=== PATIENT | female | born 1955 | race Caucasian/White ===

== ENCOUNTER 2020-10-27 16:24 | Emergency (ER) | payer OTHER ==
[2020-10-28] MEDS ORDERED: LODINE CAP 300300 MG PO (00:17)
[2020-10-28] MEDS ORDERED: NORFLEX 100 MG100 MG PO (00:17)
== END 2020-10-28 00:50 | disposition home or self-care (01) ==
LOC: ER1 16:24
DX: S16.1XXA Strain of muscle, fascia and tendon at neck level, initial encounter (principal); S39.012A Strain of muscle, fascia and tendon of lower back, initial encounter; S29.012A Strain of muscle and tendon of back wall of thorax, initial encounter; S00.83XA Contusion of other part of head, initial encounter; I11.9 Hypertensive heart disease without heart failure; E78.5 Hyperlipidemia, unspecified; F17.210 Nicotine dependence, cigarettes, uncomplicated; Z95.0 Presence of cardiac pacemaker; Z88.0 Allergy status to penicillin; V49.40XA Driver injured in collision with unspecified motor vehicles in traffic accident, initial encounter
CPT/HCPCS: 70450; 70486; 72125; 72128; 72131; 99283

== ENCOUNTER → 2021-03-15 | Outpatient (CLI) | payer MEDICARE, OTHER ==
[~2021-03-15] MED LIST: LODINE CAP 300300 MG PO; NORFLEX 100 MG100 MG PO
== END ==
LOC: HEART 5 11:13
DX: J44.9 Chronic obstructive pulmonary disease, unspecified (principal)
CPT/HCPCS: 94060; 94729